=== PATIENT | female | born 1940 | race Caucasian/White ===

== ENCOUNTER 2020-10-13 07:41 | Emergency (ER) | payer MEDICARE ==
--- NOTE | 2020-10-13 08:10 | RAD ---
RADIOGRAPH LEFT ANKLE 3 VIEWS: DATE: 10/13/2020 8:07 AM HISTORY: 79-year-old female with acute traumatic ankle pain after fall FINDINGS: This is actually 4 views, with 2 AP views and 2 lateral views repeated, and no oblique view. Therefor e, the sensitivity for the detection of nondisplaced and minimally displaced fracture is reduced because of lack of oblique view. Ankle mortise is congruent. There is no evidence of fracture. There is no subluxation or dislocation. IMPRESSION: No fracture identified.
--- NOTE | 2020-10-13 08:26 | RAD ---
RADIOGRAPH LEFT ANKLE 3 VIEWS: DATE: 10/13/2020 8:07 AM HISTORY: 79-year-old female with acute traumatic ankle pain after fall FINDINGS: This is actually 4 views, with 2 AP views and 2 lateral views repeated, and no oblique view. Therefor e, the sensitivity for the detection of nondisplaced and minimally displaced fracture is reduced because of lack of oblique view. Ankle mortise is congruent. There is no evidence of fracture. There is no subluxation or dislocation. IMPRESSION: No fracture identified. Transcribed Date/Time: 10/13/2020 8:26 AM
--- NOTE | 2020-10-13 08:35 | RAD ---
Exam:3 views right ankle HISTORY: Pain. Fall yesterday. COMPARISON: None FINDINGS: No significant soft tissue swelling. Ankle mortise appears be intact. No fracture. Chronic changes at the medial malleolus. IMPRESSION: No fracture.
== END 2020-10-13 11:32 | disposition home or self-care (01) ==
LOC: MADERS 07:41
DX: S90.01XA Contusion of right ankle, initial encounter (principal); E78.00 Pure hypercholesterolemia, unspecified; M06.9 Rheumatoid arthritis, unspecified; E03.9 Hypothyroidism, unspecified; Z87.891 Personal history of nicotine dependence; Z79.899 Other long term (current) drug therapy; W07.XXXA Fall from chair, initial encounter